=== PATIENT | male | born 1995 | race Caucasian/White ===

== ENCOUNTER 2019-02-11 18:28 | Emergency (ER) | payer BC ==
[2019-02-11] MEDS ORDERED: niCARdipine HCl 25 MG in Sodium Chloride 0.9% 250 ML IV SCH (19:15)
--- NOTE | 2019-02-11 19:16 | EDM.PDOC ---
ED HPI GENERAL MEDICAL PROBLEM - General Chief Complaint: General Stated Complaint: SENT BY [facility] Time Seen by Provider: 02/11/19 18:55 Source of Information: Reports: Patient, Family (mother) History Limitations: Reports: Other (cerebral palsy. Anxious. ) - History of Present Illness INITIAL COMMENTS - FREE TEXT/NARRATIVE: 23-year-old male sent to the ED by [facility] after having lab work done today. He went to the clinic due to a proximal relatively nonproductive cough for the better part of 2 weeks. He was identified to have severe hypertension on initial evaluation of his vital signs. Lab tests reveal that it appears that he has gone into acute renal failure with a creatinine of 18.59 with maintained sodium of 4.3 bicarbonate of 16 anion gap at 30 EGFR of 3. He is orthopneic but lies on the couch on his abdomen and can sleep this way. Hasn't appreciated any decreased in the amount of urine he's making. Of note the patient suffers from cerebral palsy and has attention deficit disorder. He is very anxious. BP upon arrival in the ED is markedly elevated at 215/140. He has a occasional headache but no headache at present denies any nausea vomiting. He still able to eat normally. States his bowel function is also normal. He denies any pruritus or pleuritic chest pain. Denies any recent sore throats. Its are very dry and chapped. Patient was given metoprolol 50 mg succinate formation prior to coming to the ED. Onset: Gradual (Has been coughing for the better part of 2 weeks according to mom. Is never been productive sounding. Sounds like a dry nonproductive cough.) Onset Date: 01/29/19 Duration: Day(s):, Getting Worse Location: Reports: Chest (Proximal is mobile nonproductive cough.) Quality: Reports: Other (Denies feeling nauseated. Denies weight gain.) Severity: Moderate Improves with: Reports: None Worsens with: Reports: Other Context: Denies: Activity (Exposure to cool night air and sometimes wakes up at night coughing.), Exercise, Lifting, Sick Contact, Trauma, Other Associated Symptoms: Reports: Cough, Malaise, Shortness of Breath, Weakness, Other (Lethargy.). Denies: Confusion, Chest Pain, cough w sputum, Diaphoresis, Fever/Chills, Headaches, Loss of Appetite, Nausea/Vomiting, Rash, Seizure, Syncope Treatments REGISTERED RESPIRATORY TECHNICIAN: Reports: Other (see below) (None.) - Related Data Allergies Allergy/AdvReac Type Severity Reaction Status Date / Time cefdinir [From Omnicef] Allergy Difficulty Verified 02/11/19 18:51 Breathing Home Meds: Home Meds Metoprolol Succinate 50 mg PO BEDTIME 02/11/19 [History] Past Medical History Neurological History: Reports: Cerebral Palsy Psychiatric History: Reports: ADHD - Past Surgical History HEENT Surgical History: Reports: Eye Surgery, Oral Surgery Other HEENT Surgeries/Procedures: bilateral eye Social & Family History - Living Situation & Occupation Living situation: Reports: with Family (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 Denies: Fever, Chills, Decreased Appetite HEENT: Reports: Other (Previous strabismus surgery as a youngster.) Respiratory: Reports: Shortness of Breath, Cough. Denies: Wheezing, Pleuritic Chest Pain, Sputum, Hemoptysis (Nonproductive) Cardiovascular: Reports: Blood Pressure Problem, Dyspnea on Exertion, Orthopnea. Denies: Chest Pain, Claudication (Identified today when he went to the clinic. BP was 239/150), Edema, Lightheadedness (Mild), Palpitations Endocrine: Reports: Fatigue GI/Abdominal: Reports: No Symptoms. Denies: Constipation, Diarrhea, Nausea, Vomiting : Reports: No Symptoms, Other (He really ) Musculoskeletal: Reports: No Symptoms (cannot comment that he is making less urine than normal.) Skin: Reports: No Symptoms Neurological: Reports: Weakness. Denies: Headache, Numbness, Paresthesia, Pre- Existing Deficit, Seizure, Syncope, Tingling, Tremors, Trouble Speaking, Difficulty Walking, Change in Speech Hematologic/Lymphatic: Reports: Anemia (Identified to be anemic at the lab at [place] today with hemoglobin of 7.6.) Immunologic: Reports: No Symptoms ED EXAM, GENERAL - Physical Exam Exam: See Below Exam Limited By: Other (Young man is quite anxious particular about having needles. He is anxious of being in the ED. Vital signs show temperature 36.3 although he feels warmer than this to palpation. Heart rate was 119 at the bedside with respiratory to 18 and sats of 90% on room air. He is mildly dyspneic at rest.) General Appearance: Alert ( BP 217/150.), WD/WN, Anxious, Moderate Distress, Other Eye Exam: Bilateral Eye: Normal Inspection, PERRL Ears: Normal TMs Throat/Mouth: Normal Teeth, Other Head: Atraumatic (Lips are very dry and coated. Tongue is dry and coated.), Normocephalic Neck: Normal Inspection, Supple, Non-Tender, Full Range of Motion. No: Lymphadenopathy (L), Lymphadenopathy (R) Respiratory/Chest: Respiratory Distress, Decreased Breath Sounds ( Rales in both lung bases.), Rales (Mild tachypnea at rest.). No: Rhonchi, Wheezing ( recent lower 20% of lung manriquez. ) Cardiovascular: Normal Peripheral Pulses, No Gallop (Tachycardia at rest.), No Murmur, No Rub, Tachycardia. No: No Edema Peripheral Pulses: 3+: Posterior Tibial (L), Posterior Tibial (R), Dorsalis Pedis (L), Dorsalis Pedis (R) GI/Abdominal: Normal Bowel Sounds, Soft, Non-Tender, No Organomegaly, No Abnormal Bruit, No Mass, Pelvis Stable, Other (Scaphoid abdomen with no palpable masses.) (Male) Exam: No Hernia Back Exam: Normal Inspection, Full Range of Motion. No: CVA Tenderness (L), CVA Tenderness (R) Extremities: Pedal Edema (1+ pitting edema both lower extremities just above the ankles.) Neurological: Alert, Oriented, CN II-XII Intact, Normal Cognition. No: Normal Gait Psychiatric: Anxious Skin Exam: Warm, Dry, Intact, Normal Color, No Rash. No: Pallor EKG INTERPRETATION EKG Date: 02/11/19 Time: 19:26 Rhythm: Other (Sinus tachycardia at 1 18/m) Rate (Beats/Min): 118 Cornucopia: Normal P-Wave: Enlarged (Consider mild left atrial hypertrophy.) QRS: Other (Left ventricular hypertrophy pattern may be normal for his age. He is also very thin stature.) ST-T: Other (Diffuse early repolarization pattern.) QT: Prolonged (Mildly prolonged) EKG Interpretation Comments: Abnormal ECG Course - Vital Signs Last Recorded V/S: Last Vital Signs Temp 36.3 C 02/11/19 18:44 Pulse 119 H 02/11/19 18:44 Resp 18 02/11/19 18:44 BP 217/150 H 02/11/19 18:44 Pulse Ox 95 02/11/19 18:44 - Orders/Labs/Meds Orders: Active Orders 24 hr Category Date Time Status EKG Documentation Completion [RC] STAT Care 02/11/19 19:11 Active Oxygen Therapy [RC] ASDIRECTED Care 02/11/19 20:30 Active CULTURE BLOOD [BC] Stat Lab 02/11/19 19:35 Received CULTURE BLOOD [BC] Stat Lab 02/11/19 19:42 Received URINALYSIS W/MICROSCOPIC [UA W/MICROSCOPIC] [URIN] Stat Lab 02/11/19 21:30 Ordered niCARdipine HCl [Nicardipine HCl] 25 mg Med 02/11/19 19:15 Active Sodium Chloride 0.9% [Normal Saline] 250 ml IV TITRATE Blood Culture x2 Reflex Set [OM.PC] Stat Oth 02/11/19 19:10 Ordered Medication Orders Nicardipine HCl 25 mg/ Sodium (Chloride) 260 mls @ 104 mls/hr IV TITRATE NOBLE Stop: 02/12/19 19:16 Last Infusion: 02/11/19 20:13 Dose: 2.5 mg/hr, 26 mls/hr Infusion: 02/11/19 20:09 Dose: 0 mg/hr, 0 mls/hr Infusion: 02/11/19 20:00 Dose: 5 mg/hr, 52 mls/hr Admin: 02/11/19 19:37 Dose: 10 mg/hr, 104 mls/hr Labs: Laboratory Tests 02/11/19 02/11/19 02/11/19 Range/Units 19:20 19:20 19:20 WBC 8.00 (4.23-9.07) K/mm3 RBC 3.00 L (4.63-6.08) M/mm3 Hgb 8.5 L (13.7-17.5) gm/dl Hct 25.7 L (40.1-51.0) % MCV 85.7 (79.0-92.2) fl MCH 28.3 (25.7-32.2) pg MCHC 33.1 (32.2-35.5) g/dl RDW Std Deviation 39.8 (35.1-43.9) fL Plt Count 193 (163-337) K/mm3 MPV 12.3 (9.4-12.3) fl Neutrophils % (Manual) 76 H (40-60) % Band Neutrophils % 1 (0-10) % Lymphocytes % (Manual) 21 (20-40) % Atypical Lymphs % 0 % Monocytes % (Manual) 1 L (2-10) % Eosinophils % (Manual) 1 (0.8-7.0) % Basophils % (Manual) 0 L (0.2-1.2) Platelet Estimate Adequate Poikilocytosis 1+ slight Ovalocytes 1+ slight Jere Cells Few RBC Morph Comment Not Reportable ESR (0-15) mm/hr PT 12.4 H (9.7-12.0) SECONDS INR 1.15 APTT 27 (22-31) SECONDS Sodium 143 (136-145) mEq/L Potassium 4.0 (3.5-5.1) mEq/L Chloride 100 (98-107) mEq/L Carbon Dioxide 17 L (21-32) mEq/L Anion Gap 30.0 H (5-15) BUN 145 H (7-18) mg/dL Creatinine 17.8 H (0.7-1.3) mg/dL Est Cr Clr Drug Dosing 4.53 mL/min Estimated GFR (MDRD) 3 (>60) mL/min BUN/Creatinine Ratio 8.1 L (14-18) Glucose 103 (74-106) mg/dL Lactic Acid (0.4-2.0) mmol/L Calcium 6.0 L (8.5-10.1) mg/dL Phosphorus 9.6 H (2.6-4.7) mg/dL Magnesium 1.4 L (1.8-2.4) mg/dl Total Bilirubin 0.4 (0.2-1.0) mg/dL AST 29 (15-37) U/L ALT 28 (16-63) U/L Alkaline Phosphatase 51 (46-116) U/L Troponin I 0.207 H* (0.00-0.056) ng/mL C-Reactive Protein 1.4 H* (<1.0) mg/dL NT-Pro-B Natriuret Pep (0-125) pg/mL Total Protein 7.5 (6.4-8.2) g/dl Albumin 3.2 L (3.4-5.0) g/dl Globulin 4.3 gm/dL Albumin/Globulin Ratio 0.7 L (1-2) 02/11/19 02/11/19 02/11/19 Range/Units 19:20 19:20 19:20 WBC (4.23-9.07) K/mm3 RBC (4.63-6.08) M/mm3 Hgb (13.7-17.5) gm/dl Hct (40.1-51.0) % MCV (79.0-92.2) fl MCH (25.7-32.2) pg MCHC (32.2-35.5) g/dl RDW Std Deviation (35.1-43.9) fL Plt Count (163-337) K/mm3 MPV (9.4-12.3) fl Neutrophils % (Manual) (40-60) % Band Neutrophils % (0-10) % Lymphocytes % (Manual) (20-40) % Atypical Lymphs % % Monocytes % (Manual) (2-10) % Eosinophils % (Manual) (0.8-7.0) % Basophils % (Manual) (0.2-1.2) Platelet Estimate Poikilocytosis Ovalocytes [place] Cells RBC Morph Comment ESR 83 H (0-15) mm/hr PT (9.7-12.0) SECONDS INR APTT (22-31) SECONDS Sodium (136-145) mEq/L Potassium (3.5-5.1) mEq/L Chloride (98-107) mEq/L Carbon Dioxide (21-32) mEq/L Anion Gap (5-15) BUN (7-18) mg/dL Creatinine (0.7-1.3) mg/dL Est Cr Clr Drug Dosing mL/min Estimated GFR (MDRD) (>60) mL/min BUN/Creatinine Ratio (14-18) Glucose (74-106) mg/dL Lactic Acid 0.8 (0.4-2.0) mmol/L Calcium (8.5-10.1) mg/dL Phosphorus (2.6-4.7) mg/dL Magnesium (1.8-2.4) mg/dl Total Bilirubin (0.2-1.0) mg/dL AST (15-37) U/L ALT (16-63) U/L Alkaline Phosphatase (46-116) U/L Troponin I (0.00-0.056) ng/mL C-Reactive Protein (<1.0) mg/dL NT-Pro-B Natriuret Pep > 44466 H (0-125) pg/mL Total Protein (6.4-8.2) g/dl Albumin (3.4-5.0) g/dl Globulin gm/dL Albumin/Globulin Ratio (1-2) Meds: Medications Generic Name Dose Route Start Last Admin Trade Name Freq PRN Reason Stop Dose Admin Nicardipine HCl 25 mg/ Sodium 260 mls @ 104 mls/hr 02/11/19 19:15 02/11/19 20 :13 Chloride IV 02/12/19 19:16 2.5 mg/hr TITRATE NOBLE 26 mls/hr Infusion 10 MG/HR Discontinued Medications Generic Name Dose Route Start Last Admin Trade Name Freq PRN Reason Stop Dose Admin Lorazepam 1 mg 02/11/19 19:18 02/11/19 19:37 Ativan IVPUSH 02/11/19 19:19 1 mg ONETIME ONE Administration - Radiology Interpretation Free Text/Narrative:: 23-year-old male presents to the ED for evaluation after having lab work at the [facility] today. He presented there because of paroxysmal nonproductive cough for the better part of 2 weeks perhaps even 3. His blood pressure was noted to be markedly elevated at the time of initial assessment with systolic blood pressures in the 240s and diastolics in the 150s. Lab work reveals renal failure likely slowly occurring. Hemoglobin is down to 7.6. Creatinine was listed at 18.1 with GFR of only 3. Patient is currently on no medications and has been on no antibiotics. Therefore the cause of his renal failure is unclear. I noticed neurological essential oils on the that have been brought in by the mother. Plan IV saline lock. The cart appearing drip starting at 10 mg/ h. Repeat labs including sedimentation rate to confirm renal failure. Interestingly his potassium is maintained at 4.3. Bicarbonate 16 . This suggests this is a compensated metabolic acidosis. Anion gap was reported at 30 using potassium. Due to his anxiety and also going to give him a milligram of Ativan IV. - Re-Assessments/Exams Free Text/Narrative Re-Assessment/Exam: 02/11/19 20:08 chest x-ray done portably reveals right lateral scalp pleural effusions with blunted costophrenic angles bilaterally. Cardiac silhouette is normal. Mild vascular congestion throughout both lung manriquez. Blood pressure responded well to the nicardipine and initially required a reduction to 5 mg per hour and then to further 2.5 mg per hour. BP is currently 107/61. Heart rate is 106. 02/11/19 20:14 Chemistry is back showing a sodium of 143 and a potassium of 4.0. Chloride is 100 with a bicarbonate of 17. Anion gap is 30.0. BUN is 145 with a creatinine of 17.8. Estimated GFR is 3. This indicates renal failure. Patient is going to require hemodialysis. BUN/creatinine ratio is 8.1. Glucose is 103 lactic acid is 0.8 calcium is 6.0. Phosphorus is 9.6 markedly elevated. Magnesium is 1.4 low. Total bilirubin is 0.4. AST is 29 with a nail to 28. Alk phosphatase is 51. Troponin I is elevated at 0.207. C-reactive protein is 1.4. BNP is greater than 35,000. Total protein is 7.5 with an albumin fraction of 3.2. PT is 12.4 with an INR 1.15. PTT is 27. Hematology is not yet available. 02/11/19 20:42 Hematology is now back. Total white count is 8.0 with 76% neutrophils and 1% band cells reported. Hemoglobin is 8.5 with hematocrit of 25.7. MCV is 85.7. Platelet count 193,000. The slide shows 1+ poikilocytosis and 1+ ovalocytes. Few jere cells appreciated. Sedimentation rate is elevated at 83. I've entered into a discussion with one commerce at [facility] in [place]. Awaiting callback from the hospitalist on-call for accepting physician. Patient be transferred to that facility per ground ambulance. 02/11/19 21:30 patient will be transferred to [facility] per ground ambulance. Dr. Garcia hospitalisi has accepted care. She did eat a turkey sandwich here and is now voiding and therefore will have a urinalysis for sampling. 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, with chronic kidney disease Acute renal failure Qualifiers: Acute renal failure type: unspecified Qualified Code(s): N17.9 - Acute kidney failure, unspecified Congestive heart failure Qualifiers: Heart failure type: unspecified Heart failure chronicity: acute Qualified Code( s): I50.9 - Heart failure, unspecified - Discharge Information *PRESCRIPTION DRUG MONITORING PROGRAM REVIEWED*: Not Applicable *COPY OF PRESCRIPTION DRUG MONITORING REPORT IN PATIENT [place]: Not Applicable Referrals: Lc Fitzpatrick MD [Primary Care Provider] - Forms: ED Department Discharge Additional Instructions: Patient transferred to [facility] in [facility] under the care of yarding supervisor Dr. Hameed and to be admitted to the hospital by Dr. Garcia hospitalist ultrasonic tester - My Orders Last 24 Hours: My Active Orders 02/11/19 19:10 Blood Culture x2 Reflex Set [OM.PC] Stat 02/11/19 19:11 EKG Documentation Completion [RC] STAT 02/11/19 19:15 niCARdipine HCl [Nicardipine HCl] 25 mg Sodium Chloride 0.9% [Normal Saline] 250 ml IV TITRATE 02/11/19 19:35 CULTURE BLOOD [BC] Stat 02/11/19 19:42 CULTURE BLOOD [BC] Stat 02/11/19 20:30 Oxygen Therapy [RC] ASDIRECTED 02/11/19 21:30 URINALYSIS W/MICROSCOPIC [UA W/MICROSCOPIC] [URIN] Stat - Assessment/Plan Last 24 Hours: My Active Orders 02/11/19 19:10 Blood Culture x2 Reflex Set [OM.PC] Stat 02/11/19 19:11 EKG Documentation Completion [RC] STAT 02/11/19 19:15 niCARdipine HCl [Nicardipine HCl] 25 mg Sodium Chloride 0.9% [Normal Saline] 250 ml IV TITRATE 02/11/19 19:35 CULTURE BLOOD [BC] Stat 02/11/19 19:42 CULTURE BLOOD [BC] Stat 02/11/19 20:30 Oxygen Therapy [RC] ASDIRECTED 02/11/19 21:30 URINALYSIS W/MICROSCOPIC [UA W/MICROSCOPIC] [URIN] Stat
[2019-02-11] MEDS ORDERED: LORazepam 2 MG/ML SDV IVPUSH ONE (19:18)
--- NOTE | 2019-02-11 20:04 | CR ---
Chest: Portable view of the chest was obtained. Comparison: No previous chest x-ray. Small bilateral pleural effusions are seen. Heart size at the upper limits of normal. Pulmonary vessels are felt to be somewhat congested. Early interstitial edema believed to be present. Bony structures are grossly intact. Impression: 1. Bilateral pleural effusions with probable pulmonary vascular congestion and interstitial edema. Please correlate if findings are due to cardiogenic or noncardiogenic etiology. Diagnostic code #3
== END 2019-02-11 21:35 ==
LOC: JD.ED 18:28
DX: I13.0 Hypertensive heart and chronic kidney disease with heart failure and stage 1 through stage 4 chronic kidney disease, or unspecified chronic kidney disease (principal); N18.9 Chronic kidney disease, unspecified; I50.9 Heart failure, unspecified; N17.9 Acute kidney failure, unspecified; G80.9 Cerebral palsy, unspecified; Z88.1 Allergy status to other antibiotic agents; Z79.899 Other long term (current) drug therapy
CPT/HCPCS: 36415; 71045; 80053; 83605; 83735; 83880; 84100; 84484; 85007; 85027; 85610; 85652; 85730; 86140; 87040; 93005; 96365; 96366; 96375; 99284; J2060; J7050; 93010; 99285